=== PATIENT | female | born 1970 | race Caucasian/White ===

== ENCOUNTER → 2017-04-11 | Outpatient (CLI) | payer BC ==
--- NOTE | 2017-04-11 12:51 | US ---
EXAMINATION TYPE: US abdomen complete DATE OF EXAM: 04/11/2017 COMPARISON: NONE CLINICAL HISTORY: R10.32 Abdominal pain on and off x 6-8 years. Mostly LLQ. EXAM MEASUREMENTS: Liver Length: 13.1 cm Gallbladder Wall: 0.1 cm CBD: 0.2 cm Spleen: 8.9 cm Right Kidney: 10.4 x 5.1 x 3.9 cm Left Kidney: 10.2 x 5.5 x 4.0 cm Pancreas: wnl, tail obscured by bowel gas Liver: wnl Gallbladder: Tiny 2mm polyp in body of GB Evidence for sonographic Miller's sign: no CBD: wnl Spleen: wnl Right Kidney: wnl Left Kidney: wnl Upper IVC: wnl Abd Aorta: wnl The liver is homogenous. The intrahepatic portion of the IVC and proximal abdominal aorta are within normal limits. There is no evidence of shadowing mobile cholelithiasis. Technologist marked 2 mm no nshadowing nonmobile hyperechoic focus possible tiny polyp. Common bile duct is unremarkable. The vi sualized portions of the pancreas are homogenous. The spleen is unremarkable. Kidneys are symmetric and free of hydronephrosis. No renal lesions are seen. IMPRESSION: No significant finding is seen to account for patient's symptoms.
== END | disposition home or self-care (01) ==
LOC: RADUSMAIN 11:58
PROVIDERS: ATTEND Internal Medicine
DX: R10.32 Left lower quadrant pain (principal)
CPT/HCPCS: 76700

== ENCOUNTER → 2017-12-24 | Outpatient (CLI) | payer BC ==
[2017-12-24 12:43] LABS: Basophils # (A) 0.1 k/uL (0-0.2); Basophils % (A) 1 %; Eosinophils # (A) 0.1 k/uL (0-0.7); Eosinophils % (A) 1 %; HCT 43.3 % (34.0-46.0); HGB 14.2 gm/dL (11.4-16.0); Lymphocytes # (A) 1.4 k/uL (1.0-4.8); Lymphocytes % (A) 23 %; MCHC 32.9 g/dL (31.0-37.0); MCV 88.2 fL (80.0-100.0); Mean Platelet Volume 8.4; Monocytes # (A) 0.3 k/uL (0-1.0); Monocytes % (A) 5 %; Neutrophils % (A) 68 %; Platelet Count 348 k/uL (150-450); RBC 4.91 m/uL (3.80-5.40); RDW 12.4 % (11.5-15.5)
[2017-12-24 12:55] LABS: Anion Gap 9 mmol/L; Blood Urea Nitrogen 12 mg/dL (7-17); Carbon Dioxide 30 mmol/L (22-30); Chloride 103 mmol/L (98-107); Glucose 88 mg/dL (74-99); Potassium 4.5 mmol/L (3.5-5.1); Sodium 142 mmol/L (137-145)
== END | disposition home or self-care (01) ==
LOC: LABPAT 12:08
PROVIDERS: ATTEND Obstetrics & Gynecology
DX: Z01.812 Encounter for preprocedural laboratory examination (principal); N92.0 Excessive and frequent menstruation with regular cycle; N94.6 Dysmenorrhea, unspecified; D25.9 Leiomyoma of uterus, unspecified; R10.32 Left lower quadrant pain
CPT/HCPCS: 36415; 80051; 82565; 82947; 84520; 85025; 87086

== ENCOUNTER 2018-01-02 08:03 | Observation (INO) | payer BC ==
[2017-12-21 10:35] VITALS: BMI 21.7
[~2018-01-02 08:03] MED LIST: DEXAMETHASONE SOD PHOSPHATE 10 MG/ML 1 ML VIAL IV ONE; HYDROmorphone 0.5 MG/0.5 ML SYRINGE IVP PRN; MIDAZOLAM 2 MG/2 ML VIAL IV PRN; ONDANSETRON 4 MG/2 ML VIAL IVP ONE; ceFAZolin IN SWFI 2 GM/20 ML SYRINGE IVP ONE
[2018-01-02] MEDS ORDERED: LIDOCAINE 1% 20 ML VIAL (10MG/ML) FOR IV START INTRADERMA ONE (08:45)
[2018-01-02] MEDS: LACTATED RINGERS 1,000 ML IV SCH ×2 (08:45→10:13)
[2018-01-02] MEDS ORDERED: DEXAMETHASONE SOD PHOS (MDV) 100 MG/10 ML VIAL ONE (10:44)
[2018-01-02] MEDS ORDERED: KETOROLAC 30 MG/ML 1 ML VIAL ONE (10:44)
[2018-01-02] MEDS ORDERED: PROPOFOL 10 MG/ML 20 ML VIAL IV ONE (10:44)
[2018-01-02] MEDS ORDERED: fentaNYL (PF) 50 MCG/ML 2 ML AMP ONE (10:44)
[2018-01-02] MEDS ORDERED: MIDAZOLAM 2 MG/2 ML VIAL ONE (10:44)
[2018-01-02] MEDS ORDERED: MORPHINE SULFATE (PF) 0.3 MG/0.3 ML SYR ONE (10:44)
[2018-01-02] MEDS ORDERED: VASOPRESSIN 20 UNIT/ML 1 ML VIAL SQ ONE (10:47)
[2018-01-02] MEDS ORDERED: BACITRACIN 500 UNIT/GM OINT 28.4 GM TUBE TOPICAL ONE (10:48)
[2018-01-02] MEDS ORDERED: NALOXONE 0.4 MG/ML 1 ML VIAL IV PRN (11:31)
[2018-01-02] MEDS ORDERED: diphenhydrAMINE 50 MG/ML 1 ML VIAL IVP PRN ×2 (11:31→12:31)
[2018-01-02] MEDS ORDERED: MORPHINE SULFATE 4 MG/ML SYRINGE IVP PRN (11:31)
[2018-01-02] MEDS ORDERED: ONDANSETRON 4 MG/2 ML VIAL IVP PRN (11:31)
[2018-01-02] MEDS ORDERED: Acetaminophen-Codeine 300-30mg TAB PO PRN (12:31)
[2018-01-02] MEDS ORDERED: METOCLOPRAMIDE 5 MG/ML 2 ML VIAL IVP PRN (12:31)
[2018-01-02] MEDS ORDERED: IBUPROFEN 600 MG TAB PO PRN (12:31)
--- NOTE | 2018-01-02 12:31 | P.OP ---
Date of Procedure: 01/02/18 Preoperative Diagnosis: Dysmenorrhea, left lower quadrant pain, fibroid uterus Postoperative Diagnosis: Same, normal-appearing ovaries bilaterally Procedure(s) Performed: Vaginal hysterectomy Anesthesia: ANGELAA Surgeon: Alisha Magaña Research Program Intern #1: Misti Menjivar Estimated Blood Loss (ml): 100 IV fluids (ml): 600 Urine output (ml): 350 Pathology: other (Cervix and uterus) Condition: stable Disposition: PACU Operative Findings: Normal-appearing ovaries bilaterally. Prominent Left cornual fibroid Description of Procedure: Patient is brought to the operating suite where a general anesthetic is administered without difficulty after the spinal with Duramorph is placed. The appropriate timeout was performed to assure proper patient and procedural identification. Antibiotics are given. Urine hCG is negative. The cervix, vagina, perineum, and lower abdominal areas are all prepped and draped in usual sterile fashion. The bladder is drained for approximately 350 mL of clear yellow urine. Examination under anesthesia reveals a retroverted bulky fibroid uterus, negative adnexa bilaterally. Weighted speculum was placed into the vagina. Cervix is grasped with a double- tooth tenaculum. Cervix is injected circumferentially with dilute Pitressin solution. A otoe-[place] blade scalpel is used to incise the mucosa with a V like positioning at 6:00. A sponge rolled finger is used to sweep the mucosa from the underlying plane's. At all times care is taken to keep the bladder and ureteral areas swept well from the operative field. Posterior peritoneum is entered at 6:00. It is suture tied with 2-0 Vicryl. The large billed speculum is placed. Uterosacral cardinal ligaments are identified, clamped cut and held with 0 Vicryl suture laterally. Skeletonization is performed in the uterine vasculature is identified, clamped cut and suture ligated. 2 additional pedicles are taken superior to the vessels. The uterus is then "walked out" posteriorly. Again the bladder swept well from the operative field as the anterior peritoneum is entered. Richar clamps are used across the final pedicles and the uterus and cervix are removed. There is a dominant left fibroid noted in the left cornual area. The pedicles are tied with 0 Vicryl, flashed, and retied for excellent hemostasis. When this is complete there is an additional fibroid on the left that is identified in the parametrial area. This was clamped with a Richar clamp, removed, the pedicle is tied, flashed, and retied once again for excellant hemostasis. Bilateral ovaries are then inspected and noted to be normal. All vascular pedicles are once again inspected and noted to be normal. Speculum is changed to the shallow billed speculum. 2-0 Vicryl suture at 6:00 is brought around the peritoneum to close it in a pursestring fashion. The previously placed uterosacral cardinal ligaments are brought across to incorporate the opposite pedicle as well as vaginal mucosa. 2 additional figure -of-eight sutures are placed for final cuff closure. The vagina is packed with one-inch iodophor gauze with basic tracing. Ledbetter catheter is placed in the urine is noted to be clear. All sponge needle and enhancement counts are correct at the end of the procedure. Patient is brought back to the recovery room in very good condition with stable vital signs including blood pressure 105 /64, pulse 85, O2 saturation 97%. Complications: None.
[2018-01-02] MEDS ORDERED: ACETAMINOPHEN TAB 325 MG TAB PO PRN (12:33)
[2018-01-03 07:31] VITALS: BP 104/64; PULSE 60; RESP 24; TEMP 98.7
--- NOTE | 2018-01-03 07:54 | P.DS ---
Providers Date of admission: 01/02/18 20:48 Expected date of discharge: 01/03/18 Attending physician: Alisha Magaña Primary care physician: [facility] Course: This is a 47-year-old white female 0 who presented with persistent dysmenorrhea and left lower quadrant pain. On evaluation, fibroid uterus was noted with a dominant fibroid in the left cornual area. Decision was made to proceed with vaginal hysterectomy. Please see my admitting history and physical for details. Vaginal hysterectomy was performed without incident. Both ovaries appeared normal and therefore were left in situ. Estimated blood loss 100 mL, please see my dictated operative note for details. This morning the patient looks well. Vaginal packing has been removed, Ledbetter catheter has been discontinued. She is tolerating regular diet. Pain is well controlled. There is no vaginal bleeding. She is passing flatus. She has no complaints. Extremities are negative, chest is clear, abdomen is soft and nontender, active bowel sounds. No CVA tenderness. Patient is being discharged home today in very good condition. She will follow- up in the office with me in 2 weeks. I have reminded her no intercourse, tampons or douching. She will use Aleve as needed at home for pain relief. I' ve asked her to call with any fevers shakes or chills, any vaginal bleeding, any pain not alleviated by Aleve, any difficulties with extremities or with breathing, or indeed with any concerns. No driving for 2 weeks. Pathology report at this time is pending. Patient Condition at Discharge: Good Plan - Discharge Summary Discharge Rx Participant: No New Discharge Prescriptions: No Action Meclizine [Antivert] 12.5 mg PO TID Baclofen 10 mg PO BID Multivitamins, Thera [Theragran] 1 each PO DAILY Ginkgo Biloba Lavallette Extract [Ginkgo] 60 mg PO DAILY L.acidoph,Paracasei, B.lactis [Probiotic] 1 each PO DAILY Discharge Medication List Baclofen 10 mg PO BID 11/18/15 [History] Ginkgo Biloba Lavallette Extract [Ginkgo] 60 mg PO DAILY 11/18/15 [History] Meclizine [Antivert] 12.5 mg PO TID 11/18/15 [History] Multivitamins, Thera [Theragran] 1 each PO DAILY 11/18/15 [History] L.acidoph,Paracasei, B.lactis [Probiotic] 1 each PO DAILY 12/21/17 [History] Follow up Appointment(s)/Referral(s): Alisha Magaña MD [STAFF PHYSICIAN] - 2 Weeks Discharge Disposition: HOME SELF-CARE
--- NOTE | 2018-01-03 08:38 | P.PN ---
Progress Note - Text Progress Note Date: 01/03/18 Patient was seen at 6:35am. 47 yo female Status post Vaginal Hysterectomy. Post- op day #1. Patient received intrathecal Duramorph. Patient was seen today, sitting up in bed no complaints, pain VAS score 0/10, no headache, no itching, no nausea and vomiting. Assessment and plan: Doing well in general no complications from anesthesia.
== END 2018-01-03 09:30 | disposition home or self-care (01) ==
LOC: OR 08:03 → 4FBP 12:07 → OR 20:48
PROVIDERS: ADMIT Obstetrics & Gynecology; ATTEND Obstetrics & Gynecology
DX: D25.2 Subserosal leiomyoma of uterus (principal); D26.1 Other benign neoplasm of corpus uteri; G51.0 Bell's palsy
CPT/HCPCS: 58260; 81025; 86900; 86901; 86850; 88307; G0378 ×2; J2250; J1100 ×2; J2405; J2274; J3010; J1885; J2704; J0690

== ENCOUNTER → 2020-06-02 | Outpatient (CLI) | payer BC | END | disposition home or self-care (01) | LOC: LABWHC1 10:19 | PROVIDERS: ATTEND Internal Medicine | DX: Z20.828 Contact with and (suspected) exposure to other viral communicable diseases (principal) | CPT/HCPCS: U0003; C9803 ==

== ENCOUNTER → 2023-03-18 | Outpatient (CLI) | payer BC ==
--- NOTE | 2023-03-18 12:45 | MR ---
EXAMINATION TYPE: MR brain wo/w con DATE OF EXAM: 03/18/2023 COMPARISON: None HISTORY: Dizziness, tinnitus TECHNIQUE: Multiplanar, multisequence images of the brain and brainstem is performed without and with IV contras t, utilizing 5 mL intravenous Gadavist . FINDINGS: Diffusion weighted images demonstrate no evidence of a recent infarct or other diffusion ab normality. There is no extra-axial fluid collection or significant white matter signal abnormality. The ventricular system and cisternal spaces are normal in size and appearance. The brain volume is age appropriate. Midline structures demonstrate normal morphology. The craniocervical junction appears within normal limits. Post contrast images demonstrate no abnormal enhancement. The dural venous sinuses appear pa tent. The globes are intact. Mild mucosal thickening in the bilateral maxillary sinuses. Mastoid air cells are clear. IMPRESSION: 1. No evidence for intracranial mass or acute/subacute ischemia. 2. Mild bilateral maxillary sinus disease.
== END | disposition home or self-care (01) ==
LOC: RADMRIMAIN 11:21
PROVIDERS: ATTEND Internal Medicine
DX: J32.0 Chronic maxillary sinusitis (principal); H93.11 Tinnitus, right ear; R42 Dizziness and giddiness
CPT/HCPCS: 70553; A9585

== ENCOUNTER → 2025-05-02 | Outpatient (CLI) | payer BC ==
--- NOTE | 2025-05-02 21:24 | NM ---
EXAMINATION TYPE: NM parathyroid w/spect DATE OF EXAM: 05/02/2025 COMPARISON: NONE CLINICAL INDICATION: Female, 54 years old with history of E21.0 PRIMARY HYPERPARATHYROIDISM; TECHNIQUE: Following administration of 24.6 mCi Tc99m Sestamibi. Anterior projection images of the neck and ches t were obtained 10 minutes and 3 hours post injection. SPECT images of the neck and chest were obtai kathy and reconstructed in three axes. FINDINGS: Thyroid tracer washout: Delayed images demonstrate near-complete tracer washout from the thyroid. Parathyroid uptake: None. The two-hour delayed images do not demonstrate any focal abnormal persisten t uptake in the region of the parathyroid glands to suggest parathyroid adenoma. Normal uptake: There is physiological tracer uptake in the myocardium, liver, salivary glands, and th yroid gland. IMPRESSION: Normal parathyroid imaging study. No suspicious persistent uptake to suggest parathyroid adenoma. [facility], , 05/02/2025 9:21 PM
== END | disposition home or self-care (01) ==
LOC: RADNMMAIN 10:55
PROVIDERS: ATTEND Internal Medicine Endocrinology, Diabetes & Metabolism
DX: E21.0 Primary hyperparathyroidism (principal)
CPT/HCPCS: 78071; A9500